=== PATIENT | female | born 1965 | race Caucasian/White ===

== ENCOUNTER 2022-06-17 14:44 | Emergency (ER) | payer MEDICARE ==
[~2022-06-17] VITALS: Ht 167.6 cm; Wt 70.8 kg
[2022-06-17 14:59] VITALS: BP_SYST 142; BP_SYST 149; BP_DIAS 102
[2022-06-17 15:08] LABS: BASOPHIL # 0.1 10^3/uL (0.0-0.1); BASOPHIL % 0.5 % (0.0-0.2); EOSINOPHIL # 0.1 10^3/uL (0.0-0.2); EOSINOPHIL % 0.9 % (0.0-5.0); MEAN CORP HGB 24.7 pg (26-34); MONOCYTES # 0.5 10^3/uL (0.3-0.8); MONOCYTES % 4.1 % (5.0-12.0); NEUTROPHIL # 8.6 10^3/uL (1.8-7.7); NEUTROPHILS % 74.3 % (41.0-85.0); PLATELET COUNT 460 10^3/uL (150-400); RED CELL DISTRIBUTION WIDTH 15.3 % (11.5-14.5)
--- NOTE | 2022-06-17 15:13 | NUR ---
WC assist to ED rm2. c/o weakness, bodyache. Recent discharge from [facility] last Monday. Reported she was admitted there on Monday for a TIA. Reports visiting family in [place] this weekend. PMHX TIA, DM, HT, COPD.
[2022-06-17 15:27] VITALS: BP 174/96
--- NOTE | 2022-06-17 15:28 | ER.PDOC ---
General Chief Complaint: Requesting Medical Care Stated Complaint: GENERALIZED WEAKNESS AND BODYACHES TRAVEL OUT OF US: No Time seen by MD: 15:25 Source: patient Exam Limitations: no limitations History of Present Illness Initial Comments Generalized weakness and body aches today. Patient was discharged from the hospital in [place] last weekend for TIA. No chest pain or shortness of breath. Severity: moderate Associated Symptoms: weakness Allergies: Coded Allergies: Penicillins (Verified Allergy, Intermediate, Rash, 06/17/22) ciprofloxacin (Verified Allergy, Intermediate, ITCHING, 06/17/22) ketorolac (Verified Allergy, Intermediate, ITCHING, 06/17/22) Past Medical History Medical History: CVA/TIA/stroke, cardiac problems, COPD, diabetes, high cholesterol, hypertension Surgical History: tonsillectomy Family History Significant Family History: no pertinent family hx Social History Smoking: non-smoker Alcohol Use: none Drug Use: none Review of Systems Constitutional: see HPI EENTM: no symptoms reported Respiratory: no symptoms reported Cardiovascular: no symptoms reported Gastrointestinal: no symptoms reported All Other Systems: Reviewed and Negative Physical Exam General Appearance: No Apparent Distress, WD/WN EENT: eyes nml inspection, nml ENT inspection, pharynx nml Neck: Non-Tender, Full Range of Motion, Supple, Normal Inspection Respiratory: chest non-tender, lungs clear, normal breath sounds, no respiratory distress, no accessory muscle use CVS: reg rate & rhythm, no murmur, no gallop, pulses nml, nml capillary refill Gastrointestinal: Normal Bowel Sounds, No Organomegaly, No Pulsatile Mass, Non Tender Back: Normal Inspection Extremities: Normal Range of Motion 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 (06/17/22 14:51) Xr Chest 1v (06/17/22 14:51) Ekg-Routine (06/17/22 14:51) Troponin I High Sensitivity (06/17/22 14:51) Urinalysis (06/17/22 14:51) Covid19 Antigen Emiliana Kathryn (06/17/22 14:51) Ct Head Wo Contrast (06/17/22 15:23) Urine Culture (06/17/22 15:45) Ceftriaxone Sodium (Rocephin) (06/17/22 16:52) Vital Signs Date Time Temp Pulse Resp B/P (MAP) Pulse Ox O2 Delivery O2 Flow Rate FiO2 06/17/22 16:31 98.0 97 20 188/77 (114) 98 Room Air* 0 21 06/17/22 15:27 98.0 102 22 174/96 (122) 98 Room Air* 0 21 06/17/22 14:59 98.0 109 22 98 06/17/22 14:59 98.0 109 22 149/102 (118) 98 Room Air* 0 21 06/17/22 14:59 98.0 109 22 Laboratory Tests Test 06/17/22 14:55 06/17/22 15:15 06/17/22 15:45 White Blood Count 11.5 10^3/uL (4.5-11.0) H Red Blood Count 4.29 10^6/uL (4.00-5.20) Hemoglobin 10.6 g/dL (12.0-15.0) L Hematocrit 34.4 % (36.0-46.0) L Mean Corpuscular Volume 80.2 fL (78-100) Mean Corpuscular Hemoglobin 24.7 pg (26-34) L Mean Corpuscular Hemoglobin Concent 30.8 g/dL (33-36.5) L Red Cell Distribution Width 15.3 % (11.5-14.5) H Platelet Count 460 10^3/uL (150-400) H Mean Platelet Volume 9.9 fL (7.8-11.0) Neutrophils (%) (Auto) 74.3 % (41.0-85.0) Lymphocytes (%) (Auto) 20.0 % (24.0-44.0) L Monocytes (%) (Auto) 4.1 % (5.0-12.0) L Neutrophils # (Auto) 8.6 10^3/uL (1.8-7.7) H Lymphocytes # (Auto) 2.30 10^3/uL1 (1.0-4.8) Monocytes # (Auto) 0.5 10^3/uL (0.3-0.8) Absolute Immature Granulocyte (auto 0.02 10^3 u/L (0-2) Absolute Eosinophils (auto) 0.1 10^3/uL (0.0-0.2) Immature Granulocytes % 0.20 % (0.00-0.50) Eosinophils % 0.9 % (0.0-5.0) Basophils % 0.5 % (0.0-0.2) H Basophils # 0.1 10^3/uL (0.0-0.1) Prothrombin Time 9.7 SEC (9.1-11.5) Prothrombin Time INR (Non-Therap) 0.9 Activated Partial Thromboplast Time 25.2 SEC (22.5-33.1) Sodium Level 138 mmol/L (132-145) Potassium Level 3.6 mmol/L (3.6-5.2) Chloride Level 98.0 mmol/L (96-109) Carbon Dioxide Level 22.8 mmol/L (20.0-32) Anion Gap 20.8 Blood Urea Nitrogen 10 mg/dL (7-18) Creatinine 1.08 mg/dL (0.59-1.40) Estimated GFR () 63.1 (>/=60) Est GFR (CKD-EPI)(Non-Afr Ukrainian) 52.1 (>/=60) BUN/Creatinine Ratio 9.0 Glucose Level 209 mg/dL (70-110) H POC Glucose 212 (70 - 110) H Calcium Level 9.9 mg/dL (8.4-10.5) Total Bilirubin 0.2 mg/dL (0.2-1.0) Aspartate Amino Transferase (AST) 16 U/L (0-35) Alanine Aminotransferase (ALT) 19 U/L (12-78) Alkaline Phosphatase 142 U/L (50-136) H Total Creatine Kinase 60 U/L (26-192) Creatine Kinase MB 1.6 ng/mL (0.5-3.6) Troponin I High Sensitivity 39 ng/L (0-50) Pro-B-Type Natriuretic Peptide 159 pg/mL (0-125) H Total Protein 8.8 g/dL (6.4-8.2) H Albumin 3.8 g/dL (3.4-5.0) Globulin 5.0 Albumin/Globulin Ratio 0.760 SARS-CoV-2 Antigen (Rapid) NEGATIVE (NEGATIVE) Urine Collection Type RANDOM Urine Color YELLOW Urine Appearance CLOUDY Urine Bilirubin NEGATIVE (NEGATIVE) Urine Ketones NEGATIVE (NEGATIVE) Urine Specific [place] 1.020 (1.005-1.030) Urine pH 5.5 (4.5-8.0) Urine Protein 2+ (NEGATIVE) H Urine Urobilinogen 0.2 E.U./dL (0.2) Urine Nitrate NEGATIVE (NEGATIVE) Urine Leukocyte Esterase NEGATIVE (NEGATIVE) Urine Glucose (Auto)(UA) NEGATIVE (NEGATIVE) Urine Blood NEGATIVE (NEGATIVE) Urine RBC NONE SEEN RBC/HPF (NONE Urine WBC TooNumerousToCount WBC/HPF (0-2) Urine Squamous Epithelial Cells FEW (<=FEW) Urine Bacteria MANY (NONE SEEN) H Progress Progress Head CT shows no acute intracranial abnormality. Chest x-ray is normal. Urinalysis is consistent with UTI. Chemistry show glucose of 209, alkaline phosphatase of 142, rest of chemistry is unremarkable. Cardiac enzymes are normal. BNP is 159. COVID is negative. WBC is 11.5 and hemoglobin is 10.6. Patient received Rocephin shot. She is feeling better to go home. Vital signs are stable. EKG/XRAY/CT/US EKG: NSR EKG Comments: HR 105, sinus tachycardia ER DEPART Departure Time of Disposition: 16:56 Disposition: 01 HOME / SELF CARE / HOMELESS Impression: Primary Impression: UTI (urinary tract infection) Additional Impressions: Weakness generalized Elevated blood pressure reading Condition: Improved Referrals: PCP,UNKNOWN (PCP) PRIMARY CARE PROVIDER Additional Instructions: Bactrim DS Follow-up with your PCP in 2 to 3 days Return to ED if worsening symptoms or concerns Duration or Time Spent with Pa: 60 min Problem Qualifiers Primary Impression: UTI (urinary tract infection) Urinary tract infection type: site unspecified Hematuria presence: without hematuria Qualified Codes: N39.0 - Urinary tract infection, site not specified LUPE MARIN MD Jun 17, 2022 15:28
--- NOTE | 2022-06-17 15:32 | DIREP ---
PROCEDURE:CHEST 1 VIEW COMPARISON:None. INDICATIONS:Weakness 2 films FINDINGS: LUNGS/PLEURA:No significant pulmonary parenchymal abnormalities. No effusions. VASCULATURE:Normal. Unremarkable pulmonary vasculature. CARDIAC:Normal. No cardiac silhouette abnormality or cardiomegaly. MEDIASTINUM:Normal. No visible mass or adenopathy. BONES:Normal. No fracture or visible bony lesion. OTHER:Monitor leads are in place. CONCLUSION:No acute cardiopulmonary abnormalities. Dictated by: Craig Cain M.D. on 06/17/2022 at 03:31 PM
[2022-06-17 15:34] LABS: CARBON DIOXIDE 22.8 mmol/L (20.0-32)
--- NOTE | 2022-06-17 15:48 | DIREP ---
PROCEDURE:CT HEAD OR BRAIN W/O CONTRAST COMPARISON:None. INDICATIONS:Generalized weakness, history of recent TIA TECHNIQUE:CT images were created without intravenous contrast. FINDINGS: VENTRICLES:The ventricles are normal in size and configuration. CEREBRUM:Normal cerebral morphology with appropriate greenberg white matter differentiation. CEREBELLUM:Negative. BRAINSTEM:Negative. BASAL CISTERNS:Negative. HEMORRHAGE:No MASS LESION:No ACUTE INFARCT:No SKULL:Normal. SINUSES:Normal. OTHER:None CONCLUSION:Normal examination. Dictated by: Naveen Motta MD on 06/17/2022 at 03:46 PM
[2022-06-17 15:53] LABS: BILIRUBIN,URINE NEGATIVE (NEGATIVE); UROBILINOGEN,URINE 0.2 E.U./dL (0.2)
[2022-06-17 16:31] VITALS: BP 188/77
[2022-06-17] MEDS ORDERED: ROCEPHIN IM STA (16:52)
[2022-06-17] MEDS ORDERED: ROCEPHIN ONE (16:57)
[2022-06-17] MEDS ORDERED: LIDOCAINE 1% VIAL ONE (16:57)
--- NOTE | 2022-06-18 07:41 | PCM.EKG ---
[facility] Test Date: 2022-06-17 Test Time: 14:49:30 Pat Name: AUDI CRUZ Department: Room: Gender: F Paper Sales Manager: CHRISTIN : 1965 Requested By: LUPE MARIN Order Number: [id number] Reading MD: Lupe MARIN Measurements Intervals [place] Rate: 105 P: 60 NM: 157 QRS: 0 QRSD: 92 T: 67 QT: 355 QTc: 470 Interpretive Statements Sinus tachycardia S1,S2,S3 pattern Low voltage, precordial leads Abnormal R-wave progression, late transition No previous ECG available for comparison Electronically Signed On 06-20-2022 7:25:53 CDT by Lupe MARIN Please click the below link to view image of tracing.
== END 2022-06-17 17:09 | disposition home or self-care (01) ==
LOC: ER 14:44
DX: N39.0 Urinary tract infection, site not specified (principal); J44.9 Chronic obstructive pulmonary disease, unspecified; E11.9 Type 2 diabetes mellitus without complications; I10 Essential (primary) hypertension; E78.00 Pure hypercholesterolemia, unspecified; Z86.73 Personal history of transient ischemic attack (TIA), and cerebral infarction without residual deficits; Z87.898 Personal history of other specified conditions; Z90.89 Acquired absence of other organs; Z20.822 Contact with and (suspected) exposure to COVID-19
CPT/HCPCS: 99285; 70450; 71045; 87426; 96372; 87086; 80053; 85025; 82948; 84484; 82553; 81001; 83880; 82550; 85610; 85730; 87077; 87186; 93005; J2001; J0696